=== PATIENT | female | born 1970 ===

== ENCOUNTER 2020-11-10 11:58 | Emergency (ER) | payer OTHER ==
[~2020-11-10] VITALS: Ht 165.1 cm; Wt 81.6 kg
[~2020-11-10 11:58] MED LIST: OMEPRAZOLE40 MG PO; ZANTAC300 MG PO
[2020-11-10] MEDS ORDERED: LIPITOR20 MG (12:05)
== END 2020-11-10 16:07 | disposition home or self-care (01) ==
LOC: ER 11:58
DX: B34.9 Viral infection, unspecified (principal); R20.0 Anesthesia of skin; Z20.822 Contact with and (suspected) exposure to COVID-19

== ENCOUNTER 2021-06-05 18:59 | Emergency (ER) | payer OTHER ==
[~2021-06-05] VITALS: Ht 165.1 cm; Wt 88.0 kg
[~2021-06-05 18:59] MED LIST changes: +LIPITOR20 MG
== END 2021-06-06 12:49 | disposition home or self-care (01) ==
LOC: ER 18:59
DX: N39.0 Urinary tract infection, site not specified (principal); A08.39 Other viral enteritis; Z03.818 Encounter for observation for suspected exposure to other biological agents ruled out

== ENCOUNTER 2025-08-07 09:08 | Outpatient (CLI) | payer OTHER | END 2025-08-07 09:12 | disposition home or self-care (01) | LOC: TOM 09:08 | PROVIDERS: ATTEND Internal Medicine Gastroenterology | DX: R10.84 Generalized abdominal pain (principal) ==

== ENCOUNTER 2025-08-10 09:40 | Outpatient (CLI) | payer OTHER | END 2025-08-10 09:44 | disposition home or self-care (01) | LOC: MAMO-SONO 09:40 | PROVIDERS: ATTEND Obstetrics & Gynecology | DX: N64.4 Mastodynia (principal); I10 Essential (primary) hypertension; E11.8 Type 2 diabetes mellitus with unspecified complications; D64.89 Other specified anemias; E78.49 Other hyperlipidemia; N39.0 Urinary tract infection, site not specified; R80.8 Other proteinuria; M25.50 Pain in unspecified joint; R79.82 Elevated C-reactive protein (CRP); R70.0 Elevated erythrocyte sedimentation rate; E56.8 Deficiency of other vitamins; D51.8 Other vitamin B12 deficiency anemias; D50.8 Other iron deficiency anemias; R79.1 Abnormal coagulation profile; N92.6 Irregular menstruation, unspecified; Z11.3 Encounter for screening for infections with a predominantly sexual mode of transmission; Z11.59 Encounter for screening for other viral diseases; E83.51 Hypocalcemia; E83.52 Hypercalcemia ==

== ENCOUNTER 2025-08-27 13:20 | Outpatient (CLI) | payer OTHER | END 2025-08-27 13:21 | disposition home or self-care (01) | LOC: NUCLEAR 13:20 | PROVIDERS: ATTEND Obstetrics & Gynecology | DX: M81.0 Age-related osteoporosis without current pathological fracture (principal) ==